=== PATIENT | male | born 1930 | race Hispanic/Latino ===

== ENCOUNTER 2017-10-25 19:08 | Emergency (ER) | payer MEDICARE ==
--- NOTE | 2017-10-25 21:21 | RAD ---
PORTABLE AP CHEST X-RAY 10/25/17 HISTORY: Injury after a fall. Right sided pain. COMPARISON: None available. FINDINGS: The cardiac silhouette and pulmonary vasculature are within normal limits with portable technique of the study. 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 There is symmetric pleural and parenchymal scarring also pre sent. Degenerative changes are seen in the spine and there is osteopenia. IMPRESSION: Chronic lung changes without evidence of an acute cardiopulmonary process. POS: [facility]
--- NOTE | 2017-10-25 21:23 | RAD ---
AP PELVIS RADIOGRAPH: 10/25/17 HISTORY: Patient fell at home and landed on buttocks. Right sided pain. FINDINGS: No obvious fracture is visualized and there is no dislocation. Degenerative changes are seen in the l umbar spine involving the sacroiliac joints bilaterally. 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 Vascular calcifications overlie the pelvis. Surgical clips overlie the left lower quadrant as well the pelvis. IMPRESSION: No obvious acute osseous abnormality is appreciated. POS: [id number]
== END 2017-10-25 21:02 | disposition home or self-care (01) ==
LOC: ERS 19:08
DX: S70.01XA Contusion of right hip, initial encounter (principal); I69.30 Unspecified sequelae of cerebral infarction; E78.5 Hyperlipidemia, unspecified; Z79.82 Long term (current) use of aspirin; Z79.899 Other long term (current) drug therapy; W01.0XXA Fall on same level from slipping, tripping and stumbling without subsequent striking against object, initial encounter; Y92.002 Bathroom of unspecified non-institutional (private) residence as the place of occurrence of the external cause
CPT/HCPCS: 71045; 72170; 93005

== ENCOUNTER 2017-11-05 09:50 | Emergency (ER) | payer MEDICARE ==
[2017-11-05 10:32] LABS: #Eosinphils 0.1 thou/uL (0.0-0.7); #Lymphocytes 0.8 thou/uL (1.20-3.40); #Monocytes 0.5 thou/uL (0.11-0.59); #Neutrophils 5.3 thou/uL (1.40-6.50); %Basophils 0.3 % (0.0-1.0); %Eosinophils 1.4 % (0.0-10.0); %Lymphocytes 12.2 % (21.0-51.0); %Monocytes 6.8 % (0.0-10.0); %Neutrophils 79.3 % (42.0-75.0); Hemoglobin 10.5 g/dL (14.0-18.0); Mean Corpuscular HGB CONC 32.9 g/dL (32.0-36.0); Mean Corpuscular Hemoglobin 29.9 pg (27.0-31.0); Mean Corpuscular Volume 90.9 fl (80.0-94.0); Mean Platelet Volume 6.4 fL (7.4-10.4); Platelet Count 221 thou/uL (130-400); RBC Distribution Width 12.5 % (11.5-14.5); Red Blood Cell (RBC) Count 3.52 mill/uL (4.70-6.10); White Blood Cell (WBC) Count 6.6 thou/uL (4.8-10.8)
[2017-11-05 10:47] LABS: ALT (SGPT) 20 U/L (8-55); AST (SGOT) 31 U/L (5-34); Albumin 3.6 g/dL (3.4-4.8); Alkaline Phosphatase 63 U/L (40-150); Anion Gap 13 mmol/L (10-20); BUN (Urea Nitrogen) 15 mg/dL (8.4-25.7); Bilirubin, Total 0.6 mg/dL (0.2-1.2); Calc. Creatinine Clearance 0 mL/min (70-130); Calcium 9.4 mg/dL (7.8-10.44); Carbon Dioxide 26 mmol/L (23-31); Chloride 102 mmol/L (98-107); Estimated GFR-MDRD Greater than 90; Globulin 3.7 g/dL (2.4-3.5); Glucose 106 mg/dL (83-110); Potassium 5.1 mmol/L (3.5-5.1); Protein, Total 7.3 g/dL (5.8-8.1); Sodium 136 mmol/L (136-145)
== END 2017-11-05 10:52 | disposition home or self-care (01) ==
LOC: ERS 09:50
DX: D64.9 Anemia, unspecified (principal); I69.328 Other speech and language deficits following cerebral infarction; E78.5 Hyperlipidemia, unspecified; Z79.82 Long term (current) use of aspirin; Z79.899 Other long term (current) drug therapy
CPT/HCPCS: 36415; 80053; 85025; 99283